=== PATIENT | female | born 1945 | race Caucasian/White ===

== ENCOUNTER 2022-05-06 18:24 | Emergency (ER) | payer MEDICARE, OTHER ==
[~2022-05-06] VITALS: Ht 157.5 cm; Wt 75.7 kg
[~2022-05-06 18:24] MED LIST: ALLOPURINOL100 MG PO; AMOXICILLIN500 M1 PO; ANTIPYRINE-BENZ10 ML; AZITHROMYCIN500 MG; BUTALB-ACETAMI1 EACH PO; CIPRO500 MG PO; GABAPENTIN300 MG PO; METOPROLOL TART50 MG PO; PRAVASTATIN SOD20 MG PO; PREDNISONE2.5 MG PO; SINGULAIR10 MG PO; TRIAMTERENE-HC1 EAC2 PO; VALTREX500 MG PO; ZOFRAN ODT4 MG SL
[2022-05-06] MEDS ORDERED: TETANUS/DIPHTHERIA TOX ADULT 0.5 ML SYR IM ONE (18:45)
[2022-05-06 19:57] VITALS: BP 132/74
== END 2022-05-06 19:45 | disposition home or self-care (01) ==
LOC: ER 18:38
DX: S00.83XA Contusion of other part of head, initial encounter (principal); W01.198A Fall on same level from slipping, tripping and stumbling with subsequent striking against other object, initial encounter; Y93.01 Activity, walking, marching and hiking; Y92.89 Other specified places as the place of occurrence of the external cause; E78.5 Hyperlipidemia, unspecified; M10.9 Gout, unspecified; Z79.82 Long term (current) use of aspirin; Z85.118 Personal history of other malignant neoplasm of bronchus and lung
CPT/HCPCS: 70450; 90714; 99284